=== PATIENT | female | born 1975 | race African-American/Black ===

== ENCOUNTER 2023-01-03 06:50 | Emergency (ER) | payer BC, OTHER ==
[~2023-01-03] VITALS: Ht 170.2 cm; Wt 57.6 kg
[~2023-01-03 06:50] MED LIST: BISA5ECT2 PO; CYCL-711 PO; GABA300C PO; HYDR200T5 PO; PRED10TA5 PO
[2023-01-03 07:09] VITALS: BP 152/86
[2023-01-03] MEDS ORDERED: LORA10TA19 PO (07:26)
[2023-01-03 08:00] VITALS: BP 148/85
--- NOTE | 2023-01-03 08:00 | NUR ---
Patient discharged with v/s stable. Written and verbal after care instructions given and explained. Patient verbalized understanding. Ambulatory with steady gait. All questions addressed prior to discharge. Advised to follow up with PMD. Occ. cough. no acute distress. no SOB. Stable for D.C
== END 2023-01-03 08:00 | disposition home or self-care (01) ==
LOC: MED 06:50
DX: I10 Essential (primary) hypertension (principal); R05.9 Cough, unspecified; J02.9 Acute pharyngitis, unspecified; Z79.899 Other long term (current) drug therapy; Z88.5 Allergy status to narcotic agent; Z88.1 Allergy status to other antibiotic agents; Z88.0 Allergy status to penicillin; Z88.2 Allergy status to sulfonamides
CPT/HCPCS: 99282

== ENCOUNTER 2023-03-09 09:37 | Emergency (ER) | payer OTHER ==
[~2023-03-09] VITALS: Ht 170.2 cm; Wt 57.6 kg
[~2023-03-09 09:37] MED LIST changes: -HYDR200T5 PO; +HYDR200T65 PO; +LORA10TA19 PO
[2023-03-09 09:41] VITALS: BP 176/91; PULSE 90; RESP 20; TEMP 98.9; O2SAT 99
--- NOTE | 2023-03-09 09:55 | NUR ---
Patient wheelchair assisted to bed 8.
--- NOTE | 2023-03-09 10:20 | NUR ---
48 y/o female c/o body aches. Per patient, she is having a flare up since last year when she had her Lymphomas removed. Patient reports taking Tylenol and Ibuprofen with minimal relief. Patient takes Amlodipine and Prednisone. Call light is within reach. Medical History: Sjorgen's, Lupus, Lymphoma ALLERGY: AMPICILLIN, SULFA, ROCEPHIN
--- NOTE | 2023-03-09 10:47 | NUR ---
SHAYNE Lazaro evaluating patient at bedside.
[2023-03-09] MEDS ORDERED: HYDROcodone/APAP 5/325 MG 1 TAB TAB PO ONE (10:55)
[2023-03-09] MEDS ORDERED: IBUPROFEN 800 MG TAB PO ONE (11:05)
[2023-03-09 11:31] LABS: APPEARANCE,URINE CLEAR (CLEAR); BILIRUBIN,URINE NEGATIVE (NEGATIVE); BLOOD, URINE NEGATIVE (NEGATIVE); COLOR,URINE YELLOW (YELLOW); LEUKOCYTE ESTERASE ,URINE NEGATIVE (NEGATIVE); NITRITE, URINE NEGATIVE (NEGATIVE); UGLUCOSE NEGATIVE (NEGATIVE)
--- NOTE | 2023-03-09 12:11 | NUR ---
Patient is laying in bed, call light is within reach. All needs met by staff.
[2023-03-09 12:16] LABS: BASOPHILS % (AUTO) 0.1 % (0.0-2.0); EOSINOPHILS % (AUTO) 0.5 % (0.0-4.0); HEMATOCRIT 28.4 % (36-48); HEMOGLOBIN 9.4 g/dL (12.0-16.0); LYMPHOCYTES % (AUTO) 13.3 % (20.5-51.1); MEAN CORPUSCULAR HEMOGLOBIN 28 pg (27-31); MEAN CORPUSCULAR HGB CONC 33 g/dL (33-37); MEAN CORPUSCULAR VOLUME 83.4 fL (80-94); MONOCYTES # (AUTO) 0.4 K/uL (0.8-1.0); MONOCYTES % (AUTO) 5.1 % (1.7-9.3); NEUTROPHILS # (AUTO) 6.4 K/uL (1.8-7.7); PLATELET COUNT (AUTO) 283 K/uL (140-450); RED BLOOD CELL COUNT(AUTO) 3.41 MIL/uL (4.20-5.40); RED CELL DISTRIBUTION WIDTH 15.5 % (11.6-13.7); WHITE BLOOD COUNT (AUTO) 7.8 K/uL (4.8-10.8)
[2023-03-09 12:20] LABS: ALBUMIN 3.2 g/dL (3.4-5.0); ANION GAP 13.3 (8-16); CARBON DIOXIDE 28.8 mmol/L (21-32); CREATININE 0.7 mg/dL (0.6-1.3); POTASSIUM 3.1 mmol/L (3.5-5.1); TOTAL BILIRUBIN 0.3 mg/dL (0.0-1.0)
[2023-03-09] MEDS ORDERED: POTASSIUM CHLORIDE 10 MEQ TABER PO ONE (12:40)
[2023-03-09 14:01] VITALS: BP 120/71; PULSE 87; RESP 18; TEMP 99.3; O2SAT 95
--- NOTE | 2023-03-09 14:01 | NUR ---
Patient discharged with v/s stable. Written and verbal after care instructions given. Patient verbalized understanding. Ambulatory with steady gait. All questions addressed prior to discharge. Advised to follow up with PMD.
--- NOTE | 2023-03-09 14:10 | NUR ---
The patient's care was reviewed and supervised by Janeth Eduardo, RN, RN.
== END 2023-03-09 14:10 | disposition home or self-care (01) ==
LOC: MED 09:37
DX: M79.18 Myalgia, other site (principal); I10 Essential (primary) hypertension; Z79.899 Other long term (current) drug therapy; Z88.0 Allergy status to penicillin; Z88.1 Allergy status to other antibiotic agents; Z88.2 Allergy status to sulfonamides; Z88.5 Allergy status to narcotic agent; Z88.8 Allergy status to other drugs, medicaments and biological substances
CPT/HCPCS: 36415; 80053; 81003; 81025; 85025; 99283

== ENCOUNTER 2023-03-26 16:13 | Emergency (ER) | payer MEDICARE, OTHER ==
[~2023-03-26] VITALS: Ht 170.2 cm; Wt 60.8 kg
[2023-03-26 16:36] VITALS: BP 136/79; PULSE 90; RESP 18; TEMP 100.7; O2SAT 20
[2023-03-26 17:20] LABS: BASOPHILS % (AUTO) 0.4 % (0.0-2.0); EOSINOPHILS % (AUTO) 0.4 % (0.0-4.0); HEMATOCRIT 30.7 % (36-48); LYMPHOCYTES # (AUTO) 1.2 K/uL (2.5-16.5); LYMPHOCYTES % (AUTO) 27.9 % (20.5-51.1); MEAN CORPUSCULAR HEMOGLOBIN 27 pg (27-31); MEAN CORPUSCULAR HGB CONC 33 g/dL (33-37); MEAN CORPUSCULAR VOLUME 82.4 fL (80-94); MONOCYTES # (AUTO) 0.2 K/uL (0.8-1.0); NEUTROPHILS # (AUTO) 2.8 K/uL (1.8-7.7); NEUTROPHILS % (AUTO) 66.3 % (42.2-75.2); PLATELET COUNT (AUTO) 246 K/uL (140-450); RED BLOOD CELL COUNT(AUTO) 3.72 MIL/uL (4.20-5.40); RED CELL DISTRIBUTION WIDTH 15.7 % (11.6-13.7); WHITE BLOOD COUNT (AUTO) 4.2 K/uL (4.8-10.8)
[2023-03-26 17:41] LABS: ALANINE AMINOTRANSFERASE 41 U/L (12-78); ALBUMIN 2.8 g/dL (3.4-5.0); ALKALINE PHOSPHATASE 164 U/L (50-136); ANION GAP 13.2 (8-16); ASPARTATE AMINOTRANSFERASE 29 U/L (15-37); CALCIUM 8.3 mg/dL (8.5-10.1); CARBON DIOXIDE 28.3 mmol/L (21-32); CHLORIDE 99 mmol/L (98-107); CREATININE 0.7 mg/dL (0.6-1.3); GFR ARICAN-AMERICAN 114 mL/min (>90); GFR NON ARICAN-AMERICAN 94 mL/min (>90); GLUCOSE 99 mg/dL (74-106); POTASSIUM 3.5 mmol/L (3.5-5.1); SODIUM SERUM 137 mmol/L (136-145); TOTAL BILIRUBIN 0.3 mg/dL (0.0-1.0); TOTAL PROTEIN, SERUM 6.9 g/dL (6.4-8.2); UREA NITROGEN, BLOOD 11 mg/dL (7-18)
[2023-03-26 17:43] LABS: LACTIC ACID 1.7 mmol/L (0.4-2.0)
[2023-03-26] MEDS ORDERED: LEVO750T75 PO (18:26)
[2023-03-26 18:49] VITALS: BP 135/81; PULSE 86; RESP 16; TEMP 99.1; O2SAT 99
== END 2023-03-26 18:52 | disposition home or self-care (01) ==
LOC: MED 16:13
DX: J18.9 Pneumonia, unspecified organism (principal); I10 Essential (primary) hypertension; Z88.1 Allergy status to other antibiotic agents; Z88.5 Allergy status to narcotic agent; Z88.6 Allergy status to analgesic agent; Z88.8 Allergy status to other drugs, medicaments and biological substances; Z79.899 Other long term (current) drug therapy
CPT/HCPCS: 36415; 71045; 80053; 81025; 83605; 84484; 85025; 87040; 99284; Q0092